=== PATIENT | male | born 1990 | race Caucasian/White ===

== ENCOUNTER 2019-04-13 00:20 | Emergency (ER) | payer SELFPAY ==
[~2019-04-13] VITALS: Ht 167.6 cm; Wt 83.9 kg
[2019-04-13 00:20] VITALS: BP 123/101
--- NOTE | 2019-04-13 00:20 | NUR ---
29 Y/O MALE C/O R KNEE PAIN, S/P KNEELING 10 MINS AGO. UNABLE TO BEAR WEIGHT ON R FOOT; AMBULATORY WITH ASSISTANCE. DENIES N/V/D/FEVER/CHILLS. PAIN IS A 9/10 ACUTE PAIN. PATIENT STATES, " IT FEELS LIKE IT'S LOCKING INTO PLACE". PALPAPLE POPLITEAL PULSES. SKIN MOIST; ELASTIC < 3SECONDS CAPILLARY REFILL. + ACTIVE ROM ON RIGHT LEG. HAS NOT TAKEN ANY MEDICATION. ERMD MADE AWARE SIDE RAILS X1. AT BEDSIDE. WILL CONTINUE TO MONITOR. HX CHRONIC R KNEE PAIN, WITH PALPABLE POSSIBLE FLUID-FILLED BUMP ON RIGHT POSTERIOR KNEE RX:DENIES NKDA
--- NOTE | 2019-04-13 00:31 | NUR ---
DR. ARRINGTON AT BEDSIDE EVALUATING PATIENT.
[2019-04-13] MEDS ORDERED: IBUPROFEN 800 MG TAB PO ONE (00:35)
--- NOTE | 2019-04-13 01:45 | NUR ---
Note leigh in EDM - 04/13/19 at 0149 by SONU Patient discharged with v/s stable. Written and verbal after care instructions given and explained. Patient alert, oriented and verbalized understanding of instructions. Ambulatory with CRUTCHES All questions addressed prior to discharge. ID band removed. Patient advised to follow up with PMD. Rx of IBUPROFEN given. Patient educated on indication of medication including possible reaction and side effects. Opportunity to ask questions provided and answered.
--- NOTE | 2019-04-13 01:47 | NUR ---
PLACED KNEE IMMOBOLIZER ON PT'S RIGHT KNEE, CHECK PMSC'S BEFORE AND AFTER PLACEMENT OF KNEE IMMOBOLIZER WITHOUT INCIDENT, THEN PROVIDED AND TAUGHT PT HOW TO USE CRUTCHES
[2019-04-13 01:48] VITALS: BP 121/98
--- NOTE | 2019-04-13 01:48 | NUR ---
Patient discharged with v/s stable. Written and verbal after care instructions given and explained. Patient alert, oriented and verbalized understanding of instructions. Ambulatory with CRUTCHES All questions addressed prior to discharge. ID band removed. Patient advised to follow up with PMD. Rx of IBUPROFEN given. Patient educated on indication of medication including possible reaction and side effects. Opportunity to ask questions provided and answered.
== END 2019-04-13 01:48 | disposition home or self-care (01) ==
LOC: MED 00:20
DX: M25.561 Pain in right knee (principal); M71.21 Synovial cyst of popliteal space [Baker], right knee; G89.29 Other chronic pain
CPT/HCPCS: 29505; 73562; 99283; Q0092

== ENCOUNTER 2024-01-12 12:26 | Inpatient (IN) | payer MEDICAID ==
[~2024-01-12] VITALS: Ht 167.6 cm; Wt 97.5 kg
[2024-01-12 12:50] VITALS: BP 130/97; PULSE 115; RESP 20; TEMP 97.8; O2SAT 99
[2024-01-12 16:36] LABS: BASOPHILS % (AUTO) 0.2 % (0.0-2.0); EOSINOPHILS % (AUTO) 0.3 % (0.0-4.0); HEMOGLOBIN 15.3 g/dL (12.0-18.0); LYMPHOCYTES # (AUTO) 1.8 K/uL (2.0-11.5); LYMPHOCYTES % (AUTO) 12.3 % (20.5-51.1); MEAN CORPUSCULAR HEMOGLOBIN 28 pg (27-31); MEAN CORPUSCULAR HGB CONC 33 g/dL (33-37); MEAN CORPUSCULAR VOLUME 85.5 fL (80-94); MONOCYTES # (AUTO) 1.2 K/uL (0.8-1.0); MONOCYTES % (AUTO) 8.3 % (1.7-9.3); NEUTROPHILS # (AUTO) 11.2 K/uL (1.8-7.7); NEUTROPHILS % (AUTO) 78.9 % (42.2-75.2); PLATELET COUNT (AUTO) 208 K/uL (140-450); RED BLOOD CELL COUNT(AUTO) 5.38 MIL/uL (4.20-6.10); RED CELL DISTRIBUTION WIDTH 13.2 % (11.6-13.7); WHITE BLOOD COUNT (AUTO) 14.2 K/uL (4.8-10.8)
[2024-01-12 17:17] LABS: ANION GAP 11.7 (8-16); CALCIUM 9.1 mg/dL (8.5-10.1); POTASSIUM 3.7 mmol/L (3.5-5.1)
[2024-01-12] MEDS: NACL 0.9% 1,000 ML IV ONE (18:15)
[2024-01-12] MEDS: KETOROLAC 30 MG/ML VIAL IVP ONE (18:17)
[2024-01-12] MEDS: ACETAMINOPHEN EXTRA STRENGTH 500 MG TAB PO ONE ×2 (18:20→19:40)
[2024-01-12] MEDS ORDERED: cefTRIAXone 1,000 MG VIAL ONE (20:39)
[2024-01-12] MEDS: NACL 0.9% 2,000 ML IV ONE (21:00)
[2024-01-12] MEDS ORDERED: MORPHINE SULFATE 2 MG/ML SYR IVP PRN (21:25)
[2024-01-12] MEDS ORDERED: VANCOMYCIN PER PHARMACY MC PRN (21:25)
[2024-01-12] MEDS ORDERED: HYDROcodone/APAP 5/325 MG 1 TAB TAB PO PRN (21:25)
[2024-01-12] MEDS ORDERED: ONDANSETRON 4 MG/2 ML VIAL IVP PRN (21:25)
[2024-01-12 21:27] LABS: LACTIC ACID 1.4 mmol/L (0.4-2.0)
[2024-01-12] MEDS ORDERED: VANCOMYCIN 1,000 MG VIAL ONE (21:29)
[2024-01-12] MEDS: VANCOMYCIN 1,000 MG in DEXTROSE 5% 250 ML IV ONE (21:33)
[2024-01-12 23:25] VITALS: PULSE 82; RESP 18; O2SAT 98
[2024-01-12] MEDS: NACL 0.9% 1,000 ML IV SCH (23:33)
[2024-01-13] VITALS: BP 125/82; PULSE 82; RESP 18; TEMP 97.2; O2SAT 98
[2024-01-13] MEDS: metroNIDAZOLE 500 MG/NS PREMIX 100 ML IV SCH (04:49)
[2024-01-13 07:01] LABS: BASOPHILS % (AUTO) 0.1 % (0.0-2.0); EOSINOPHILS # (AUTO) 0.1 K/uL (0-0.4); HEMATOCRIT 43.1 % (36-52); HEMOGLOBIN 14.7 g/dL (12.0-18.0); LYMPHOCYTES # (AUTO) 1.1 K/uL (2.0-11.5); MEAN CORPUSCULAR HEMOGLOBIN 29 pg (27-31); MEAN CORPUSCULAR HGB CONC 34 g/dL (33-37); MEAN CORPUSCULAR VOLUME 85.2 fL (80-94); MONOCYTES # (AUTO) 0.9 K/uL (0.8-1.0); MONOCYTES % (AUTO) 8.9 % (1.7-9.3); PLATELET COUNT (AUTO) 176 K/uL (140-450); RED BLOOD CELL COUNT(AUTO) 5.06 MIL/uL (4.20-6.10); WHITE BLOOD COUNT (AUTO) 10.1 K/uL (4.8-10.8)
[2024-01-13 07:10] LABS: ANION GAP 9.5 (8-16); CALCIUM 8.4 mg/dL (8.5-10.1); CARBON DIOXIDE 30.2 mmol/L (21-32); CREATININE 0.9 mg/dL (0.6-1.3); POTASSIUM 3.7 mmol/L (3.5-5.1)
[2024-01-13 08:00] VITALS: BP 118/77; PULSE 90; PULSE 98; RESP 20; TEMP 98; O2SAT 98
[2024-01-13] MEDS: VANCOMYCIN 1,000 MG in DEXTROSE 5% 250 ML IV SCH (09:47)
[2024-01-13] MEDS: NACL 0.9% IRR 250 ML BOTTLE IR SCH (13:00)
[2024-01-13 16:00] VITALS: BP 129/94; PULSE 103; RESP 20; TEMP 97.3; O2SAT 97
[2024-01-13 20:00] VITALS: PULSE 99; RESP 18; O2SAT 99
[2024-01-13 22:00] VITALS: BP 116/81; PULSE 81; RESP 18; TEMP 97.8; O2SAT 99
[2024-01-14 08:00] VITALS: BP 117/85; PULSE 97; PULSE 98; RESP 18; TEMP 97.1; O2SAT 98
[2024-01-14] MEDS ORDERED: MEPERIDINE 25 MG/ML SYR IVP PRN (08:10)
[2024-01-14] MEDS: LACTATED RINGERS 1,000 ML IV SCH (08:10)
[2024-01-14] MEDS ORDERED: HYDROmorphone 1 MG/ML AMP IVP PRN (08:10)
[2024-01-14] MEDS ORDERED: diphenhydrAMINE 50 MG/ML VIAL IVP PRN (08:10)
[2024-01-14] MEDS: fentaNYL citrate 0.05 MG/ML VIAL ONE (08:10)
[2024-01-14] MEDS ORDERED: ONDANSETRON 4 MG/2 ML VIAL IVP PRN (08:10)
[2024-01-14] MEDS: NACL 0.9% 1,000 ML IV SCH (08:10)
[2024-01-14] MEDS: PROPOFOL 200 MG/20 ML VIAL IV ONE (08:10)
[2024-01-14] MEDS: MIDAZOLAM 2 MG/2 ML VIAL ONE ×2 (08:11→08:26)
[2024-01-14 08:25] LABS: BASOPHILS % (AUTO) 0.2 % (0.0-2.0); EOSINOPHILS # (AUTO) 0.1 K/uL (0-0.4); EOSINOPHILS % (AUTO) 1.9 % (0.0-4.0); HEMATOCRIT 43.3 % (36-52); HEMOGLOBIN 14.6 g/dL (12.0-18.0); LYMPHOCYTES # (AUTO) 1.5 K/uL (2.0-11.5); LYMPHOCYTES % (AUTO) 22.3 % (20.5-51.1); MEAN CORPUSCULAR HEMOGLOBIN 29 pg (27-31); MEAN CORPUSCULAR HGB CONC 34 g/dL (33-37); MONOCYTES # (AUTO) 0.6 K/uL (0.8-1.0); MONOCYTES % (AUTO) 8.6 % (1.7-9.3); NEUTROPHILS # (AUTO) 4.5 K/uL (1.8-7.7); PLATELET COUNT (AUTO) 210 K/uL (140-450); RED BLOOD CELL COUNT(AUTO) 5.09 MIL/uL (4.20-6.10); RED CELL DISTRIBUTION WIDTH 13.1 % (11.6-13.7); WHITE BLOOD COUNT (AUTO) 6.7 K/uL (4.8-10.8)
[2024-01-14] MEDS ORDERED: HYDROcodone/APAP 5/325 MG 1 TAB TAB PO PRN (08:25)
[2024-01-14] MEDS: BUPIVACAINE-MPF 0.25% 30 ML VIAL INJ ONE (08:30)
[2024-01-14] MEDS: LIDOCAINE/EPI 1% 1:100000 20 ML VIAL INJ ONE (08:30)
[2024-01-14 08:41] LABS: ANION GAP 12.9 (8-16); CALCIUM 8.7 mg/dL (8.5-10.1); CARBON DIOXIDE 27.6 mmol/L (21-32); CREATININE 0.8 mg/dL (0.6-1.3); POTASSIUM 3.5 mmol/L (3.5-5.1)
[2024-01-14 16:00] VITALS: BP 108/70; PULSE 91; RESP 20; TEMP 98.8; O2SAT 98
[2024-01-14] MEDS: VANCOMYCIN 1,000 MG in DEXTROSE 5% 250 ML IV SCH (16:54)
[2024-01-14 20:00] VITALS: BP 110/68; PULSE 87; RESP 22; TEMP 98; O2SAT 98
[2024-01-15 04:00] VITALS: BP 115/80; PULSE 73; RESP 22; TEMP 97.8; O2SAT 97
[2024-01-15 08:00] VITALS: PULSE 96; RESP 18; O2SAT 100
[2024-01-15 08:36] LABS: ANION GAP 9.5 (8-16); CALCIUM 8.6 mg/dL (8.5-10.1); CARBON DIOXIDE 30.6 mmol/L (21-32); CREATININE 0.9 mg/dL (0.6-1.3); POTASSIUM 4.1 mmol/L (3.5-5.1)
[2024-01-15 08:40] LABS: BASOPHILS % (AUTO) 0.2 % (0.0-2.0); EOSINOPHILS # (AUTO) 0.1 K/uL (0-0.4); EOSINOPHILS % (AUTO) 2.5 % (0.0-4.0); HEMATOCRIT 43.3 % (36-52); HEMOGLOBIN 14.5 g/dL (12.0-18.0); LYMPHOCYTES # (AUTO) 1.2 K/uL (2.0-11.5); LYMPHOCYTES % (AUTO) 20.9 % (20.5-51.1); MEAN CORPUSCULAR HEMOGLOBIN 29 pg (27-31); MEAN CORPUSCULAR HGB CONC 34 g/dL (33-37); MEAN CORPUSCULAR VOLUME 86.3 fL (80-94); MONOCYTES # (AUTO) 0.6 K/uL (0.8-1.0); MONOCYTES % (AUTO) 9.8 % (1.7-9.3); NEUTROPHILS # (AUTO) 3.9 K/uL (1.8-7.7); NEUTROPHILS % (AUTO) 66.6 % (42.2-75.2); PLATELET COUNT (AUTO) 228 K/uL (140-450); RED BLOOD CELL COUNT(AUTO) 5.02 MIL/uL (4.20-6.10); WHITE BLOOD COUNT (AUTO) 5.9 K/uL (4.8-10.8)
[2024-01-15 08:51] LABS: INR 1.08 (0.8-1.2); PARTIAL THROMBOPLASTIN TIME 23.2 secs (22-35.6); PROTHROMBIN TIME 11.3 secs (10.8-13.4)
[2024-01-15] MEDS: ACETAMINOPHEN 325 MG TAB PO PRN (09:19)
[2024-01-15] MEDS ORDERED: NON ADHERENT DRESSING TP PRN (10:45)
[2024-01-15 12:00] VITALS: BP 115/80; PULSE 96; RESP 18; TEMP 97.8; O2SAT 100
[2024-01-15] MEDS: NON ADHERENT DRESSING TP SCH (12:30)
[2024-01-15 20:05] VITALS: BP 125/83; PULSE 81; RESP 28; TEMP 99; O2SAT 99
[2024-01-15 20:39] VITALS: PULSE 81; RESP 28; O2SAT 99
[2024-01-16 06:52] VITALS: BP 109/57; PULSE 70; RESP 16; TEMP 97.6
[2024-01-16 07:32] LABS: ANION GAP 9.7 (8-16); CALCIUM 8.6 mg/dL (8.5-10.1); CREATININE 0.9 mg/dL (0.6-1.3); POTASSIUM 3.7 mmol/L (3.5-5.1)
[2024-01-16 07:37] VITALS: PULSE 78; RESP 20; O2SAT 98
[2024-01-16 07:45] LABS: BASOPHILS % (AUTO) 0.4 % (0.0-2.0); EOSINOPHILS # (AUTO) 0.2 K/uL (0-0.4); EOSINOPHILS % (AUTO) 3.6 % (0.0-4.0); HEMATOCRIT 41.8 % (36-52); HEMOGLOBIN 14.1 g/dL (12.0-18.0); LYMPHOCYTES # (AUTO) 1.4 K/uL (2.0-11.5); MEAN CORPUSCULAR HEMOGLOBIN 29 pg (27-31); MEAN CORPUSCULAR HGB CONC 34 g/dL (33-37); MEAN CORPUSCULAR VOLUME 86.3 fL (80-94); MONOCYTES # (AUTO) 0.7 K/uL (0.8-1.0); MONOCYTES % (AUTO) 11.2 % (1.7-9.3); NEUTROPHILS # (AUTO) 3.7 K/uL (1.8-7.7); NEUTROPHILS % (AUTO) 61.8 % (42.2-75.2); PLATELET COUNT (AUTO) 247 K/uL (140-450); RED BLOOD CELL COUNT(AUTO) 4.85 MIL/uL (4.20-6.10); WHITE BLOOD COUNT (AUTO) 5.9 K/uL (4.8-10.8)
[2024-01-16 08:00] VITALS: BP 118/75; PULSE 68; RESP 20; TEMP 96.8; O2SAT 96
[2024-01-16 16:00] VITALS: BP 131/84; PULSE 86; RESP 18; TEMP 97.2; O2SAT 98
[2024-01-16 20:00] VITALS: BP 138/82; PULSE 98; RESP 18; RESP 20; TEMP 97.9; O2SAT 97
[2024-01-17 04:00] VITALS: BP 108/79; PULSE 74; RESP 18; TEMP 97.4; O2SAT 98
[2024-01-17 06:47] LABS: BASOPHILS % (AUTO) 0.4 % (0.0-2.0); EOSINOPHILS # (AUTO) 0.2 K/uL (0-0.4); EOSINOPHILS % (AUTO) 3.1 % (0.0-4.0); HEMATOCRIT 41.7 % (36-52); HEMOGLOBIN 14.2 g/dL (12.0-18.0); LYMPHOCYTES # (AUTO) 1.3 K/uL (2.0-11.5); LYMPHOCYTES % (AUTO) 21.2 % (20.5-51.1); MEAN CORPUSCULAR HEMOGLOBIN 29 pg (27-31); MEAN CORPUSCULAR HGB CONC 34 g/dL (33-37); MEAN CORPUSCULAR VOLUME 86.1 fL (80-94); MONOCYTES # (AUTO) 0.6 K/uL (0.8-1.0); MONOCYTES % (AUTO) 9.4 % (1.7-9.3); NEUTROPHILS # (AUTO) 4.1 K/uL (1.8-7.7); NEUTROPHILS % (AUTO) 65.9 % (42.2-75.2); PLATELET COUNT (AUTO) 261 K/uL (140-450); RED BLOOD CELL COUNT(AUTO) 4.85 MIL/uL (4.20-6.10); RED CELL DISTRIBUTION WIDTH 13.2 % (11.6-13.7); WHITE BLOOD COUNT (AUTO) 6.3 K/uL (4.8-10.8)
[2024-01-17 07:19] LABS: ANION GAP 10.3 (8-16); CALCIUM 8.4 mg/dL (8.5-10.1); CARBON DIOXIDE 29.3 mmol/L (21-32); CREATININE 0.8 mg/dL (0.6-1.3); POTASSIUM 3.6 mmol/L (3.5-5.1)
[2024-01-17 08:00] VITALS: BP 117/75; PULSE 70; RESP 18; TEMP 97; O2SAT 99
[2024-01-17 08:07] VITALS: PULSE 99; RESP 19; O2SAT 99
[2024-01-17] MEDS ORDERED: LEVO-481 PO (10:21)
[2024-01-17] MEDS ORDERED: CLIN150C1 PO (10:21)
[2024-01-17] MEDS ORDERED: IBUP-2213 PO (10:22)
[2024-01-17 11:03] VITALS: BP 117/75; PULSE 70; RESP 18; TEMP 97
== END 2024-01-17 13:53 | disposition home or self-care (01) | DRG 383 ==
LOC: MED 12:26 → MMU 21:32 → MTU 22:12
PROVIDERS: ADMIT Student in an Organized Health Care Education/Training Program; ATTEND Student in an Organized Health Care Education/Training Program
PROC: 0JBN0ZZ Excision of Right Lower Leg Subcutaneous Tissue and Fascia, Open Approach (ICD-10-PCS; principal; 2024-01-14 08:00)
DX: L03.115 Cellulitis of right lower limb (principal); R65.10 Systemic inflammatory response syndrome (SIRS) of non-infectious origin without acute organ dysfunction; E87.1 Hypo-osmolality and hyponatremia; L02.415 Cutaneous abscess of right lower limb; E66.9 Obesity, unspecified; Z59.00 Homelessness unspecified; R00.0 Tachycardia, unspecified; Z68.34 Body mass index [BMI] 34.0-34.9, adult
CPT/HCPCS: 36415; 73701; 80048; 80202; 83605; 85025; 85610; 85730; 87040; 87070; 87075; 87081; 87205; 88304; 96361; 96365; 96375; 99285; J0696; J1885; J2001; J2250; J2704; J3010; J3370; J3490; J7060; Q9967